=== PATIENT | female | born 1955 | race Caucasian/White ===

== ENCOUNTER 2016-04-25 04:01 | Emergency (ER) | payer OTHER, MEDICARE ==
[~2016-04-25 04:01] MED LIST: AMIT75 PO; ASAB PO; AZOR1 TAB PO; COREG12 PO; COREG3 PO; COZ50 PO; CYMBALTA60 PO; DURA25 TOP; ENDOCET1 TA3 PO; IRON325 MG PO; KLONO2 PO; LIPITOR20 PO; LISINOPRIL40 MG PO; METANX PO; METHOC750B PO; MULTIPLE VIT PO; NEUPRO 6MG6 MG/24 HR TOP; NEUR800 PO; NEXIUM40 PO; NORV10 PO; OXYCON10 PO; OXYCON20 PO; PCET PO; PERCOCET1 TA4 PO; PR25 PO; PROAIR HFA INH; PROMETRIUM PO; PROZAC40 MG PO; REM15 PO; V2 PO; VITAMIN D1000 UNI1 PO; VITAMIN D31000 UNIT PO; VITAMIN D400 UNI1 PO; VIVELLE-DOT0.05 MG TOP; VYTORIN 10/20 T1 TAB PO; WELCHOL 625 MG625 MG OR; ZONEGRAN PO; [UNRECOGNIZED DRUG - OTHER]; [UNRECOGNIZED DRUG - OTHER] IM
[2016-04-25 04:03] LABS: BASOPHILS 0.4 %; BASOPHILS ABSOLUTE 0.03 10/3/uL (0.0-0.16); EOSINOPHILS ABSOLUTE 0.42 10/3/uL (0.0-0.53); HEMATOCRIT 43.7 % (36.0-48.0); IMMATURE GRANULOCYTES 0.1 %; IMMATURE GRANULOCYTES ABSOLUTE 0.01 10/3/uL (0.0-0.11); LYMPHOCYTES 32.2 %; LYMPHOCYTES ABSOLUTE 2.69 10/3/uL (0.67-4.30); MEAN CORPUSCULAR HEMOGLOB 27.8 pg (26.0-34.0); MEAN CORPUSCULAR VOLUME 86.7 fL (80-100); MEAN PLATELET VOLUME 9.7 fL (9.2-13.0); MONOCYTES 7.3 %; MONOCYTES ABSOLUTE 0.61 10/3/uL (0.21-1.20); NEUTROPHILS ABSOLUTE 4.59 10/3/uL (2.02-8.40); PLATELET COUNT 253 10/3/uL (150-400); RBC DISTRIBUTION WIDTH 13.8 % (12.0-16.0); RED CELL COUNT 5.04 10/6/uL (4.0-5.6); WHITE BLOOD CELLS 8.4 10/3/uL (4.5-10.5)
[2016-04-25 04:04] LABS: MANUAL DIFF NO %
[2016-04-25 04:21] LABS: INTERNATIONAL NORMAL RATI 0.9 UNITS (-); PARTIAL THROMBO TIME 24.8 SEC (22.5-37.2); PROTIME (NOT ORD) 12.2 SEC (12.0-14.5)
[2016-04-25 04:23] LABS: CALCIUM, SERUM 9.4 MG/DL (8.5-10.4); CHEST PAIN PROFILE TAT 0 Hrs 26 Mins; CHLORIDE, SERUM 102 MMOL/L (96-112); CO2 (CARBON DIOXIDE) 30 MMOL/L (24-34); CREATININE 0.88 MG/DL (0.55-1.02); GFR AFRICAN AMERICAN 83 ML/MIN (>=60); GFR NON AFRICAN AMERICAN 72 ML/MIN (>=60); GLUCOSE, SERUM 108 MG/DL (60-99); POTASSIUM, SERUM 4.2 MMOL/L (3.5-5.3); SODIUM, SERUM 143 MMOL/L (135-148); TROPONIN I 0.02 NG/ML (<0.05)
[2016-04-25 04:24] LABS: BUN (BLOOD UREA NITROGEN) 20 MG/DL (6-23)
[2016-07-14] MEDS ORDERED: PCET PO (09:14)
[2016-07-14] MEDS ORDERED: NEXIUM40 PO (09:19)
== END 2016-04-25 06:20 | disposition home or self-care (01) ==
LOC: ER 04:01
PROVIDERS: Specialist
DX: M25.542 Pain in joints of left hand (principal); I10 Essential (primary) hypertension; Z90.710 Acquired absence of both cervix and uterus; Z79.82 Long term (current) use of aspirin; Z79.01 Long term (current) use of anticoagulants; Z79.899 Other long term (current) drug therapy
CPT/HCPCS: 71020; 72050; 80048; 83735; 84484; 85025; 85610; 85730; 93005; 96374; 96375; 99285; J1170; J2405

== ENCOUNTER 2016-07-15 07:08 | Day surgery (SDC) | payer OTHER, MEDICARE ==
--- NOTE | ~2016-07-15 | EGD ---
EGD REPORT [facility] [address] [place] [address] NAME: RICK OBRIEN : 59 STATUS : REG [facility]#: [id number] AGE: 61 ADM/REG DATE : 07/15/16 MR#: [id number] REPORT SERV DATE: 07/15/16 DICTATED BY: NATANAEL OH DATE: 07/15/16 REPORT STATUS : Draft TRANSCRIBED BY: [facility] DATE: 07/15/16 Endoscopy Center Patient Name: Rick Obrien Date of : 1955 Attending MD: NATANAEL OH MD Procedure Date No Time: 07/15/2016 Procedure: Upper GI endoscopy Indications: Dysphagia Referring MD: SUKUMAR ETIENNE Medicines: Propofol per Anesthesia Complications: No immediate complications. Procedure: Pre-Anesthesia Assessment: - ASA Grade Assessment: III - A patient with severe systemic disease. After obtaining informed consent, the endoscope was passed under direct vision. Throughout the procedure, the patient's blood pressure, pulse, and oxygen saturations were monitored continuously. The GIF [id number] was introduced through the mouth, and advanced to the second part of duodenum. The upper GI endoscopy was accomplished without difficulty. The patient tolerated the procedure well. Findings: A medium-sized hiatus hernia was present. Evidence of previous latoya fundoplication which appears to be loosened. Diffuse moderate inflammation characterized by erosions, erythema and friability was found in the stomach. Biopsies were taken with a cold forceps for histology. The examined duodenum was normal. Impression: - Hiatus hernia. - Chronic gastritis. Biopsied. - Normal examined duodenum. Recommendation: - Discharge patient to home (ambulatory). - Return to my office in 3 weeks. - Discharge patient to home (ambulatory). Procedure Code(s): --- Professional --- 90404, Esophagogastroduodenoscopy, flexible, transoral; with biopsy, single or multiple Diagnosis Code(s): --- Professional --- K44.9, Diaphragmatic hernia without obstruction or EGD REPORT [facility] [address] [place] [address] [place] [address] NAME: RICK OBRIEN : [birth year] STATUS : REG [facility] [place]#: [id number] AGE: 61 ADM/REG DATE : 07/15/16 MR#: [id number] REPORT SERV DATE: 07/15/16 DICTATED BY: NATANAEL OH. DATE: 07/15/16 REPORT STATUS : Draft TRANSCRIBED BY: [facility] DATE: 07/15/16 gangrene K29.50, Unspecified chronic gastritis without bleeding R13.10, Dysphagia, unspecified CPT copyright 2013 [employer]. All rights reserved. The codes documented in this report are preliminary and upon infant room teacher review may be revised to meet current compliance requirements. Natanael Oh MD NATANAEL OH MD 07/15/2016 8:18 AM This report has been signed electronically. Number of Addenda: 0 Note Initiated On: 07/15/2016 8:05 AM Scope Withdrawal Time 0 hours 0 minutes 0 seconds [address] [facility] [place] [address]
== END 2016-07-15 23:59 | disposition home or self-care (01) ==
LOC: DMU 07:08
PROVIDERS: Internal Medicine Gastroenterology
PROC: 0DB68ZX Excision of Stomach, Via Natural or Artificial Opening Endoscopic, Diagnostic (ICD-10-PCS; principal; 2016-07-15 08:30)
DX: K44.9 Diaphragmatic hernia without obstruction or gangrene (principal); K21.9 Gastro-esophageal reflux disease without esophagitis; I10 Essential (primary) hypertension; G20 Parkinson's disease; F41.9 Anxiety disorder, unspecified; J45.909 Unspecified asthma, uncomplicated; E78.00 Pure hypercholesterolemia, unspecified; F32.9 Major depressive disorder, single episode, unspecified; Z79.52 Long term (current) use of systemic steroids; Z79.891 Long term (current) use of opiate analgesic; Z79.899 Other long term (current) drug therapy; Z86.73 Personal history of transient ischemic attack (TIA), and cerebral infarction without residual deficits; Z98.1 Arthrodesis status; Z79.82 Long term (current) use of aspirin; Z90.89 Acquired absence of other organs; Z90.49 Acquired absence of other specified parts of digestive tract; Z90.710 Acquired absence of both cervix and uterus; Z98.890 Other specified postprocedural states
CPT/HCPCS: 88305; J2405